=== PATIENT | male | born 1965 | race Caucasian/White ===

== ENCOUNTER 2024-10-02 11:53 | Emergency (ER) | payer BC, SELFPAY ==
[2024-10-02] VITALS (17 sets, daily range): BP systolic 103–129; BP diastolic 72–101; PULSE 48–87; RESP 13–23; TEMP 36.4; O2SAT 95–100; BMI 25.7
--- NOTE | 2024-10-02 12:48 | XR_ITS ---
WS: [id number] Portable AP upright chest, 10/02/2024 Clinical Data: dyspnea/cough Comparison: None. Findings: No nodules, masses or effusions are seen. The heart is normal. The pulmonary vascularity is not increased. No pneumonia or pneumothorax is seen. The aortic arch and descending thoracic aorta show tortuosity. Monitor leads are on the chest wall. XR/XR chest 1V portable [id number] Impression: Atherosclerosis.
--- NOTE | 2024-10-02 12:48 | CTR_ITS ---
PROCEDURE INFORMATION: Exam: CT Abdomen And Pelvis With Contrast Exam date and time: 10/02/2024 2:30 PM Age: 58 years old Clinical indication: Nausea and vomiting; Abdominal pain; Generalized; Additional info: Abd pain TECHNIQUE: Imaging protocol: Computed tomography of the abdomen and pelvis with contrast. Radiation optimization: All CT scans at this facility use at least one of these dose optimization techniques: automated exposure control; mA and/or kV adjustment per patient size (includes targeted exams where dose is matched to clinical indication); or iterative reconstruction. Contrast material: OMNI 350; Contrast volume: 100 ml; Contrast route: INTRAVENOUS (IV); COMPARISON: CR XR chest 1V portable [id number] 10/02/2024 12:58 PM RADIATION DOSE METRICS: Total DLP (mGy-cm): 2004 FINDINGS: Lungs: Right lung calcified granuloma is benign. Lung bases are clear. Liver: Liver is enlarged measuring 18 cm. Periportal edema. A finding which has been associated with increased intravascular volume or acute hepatitis. Liver is enlarged measuring 18 cm. Scattered calcified liver granulomas are benign. Gallbladder and biliary ducts: Gallbladder is normal. There is no evidence of biliary ductal dilation. Pancreas: The pancreas is normal. Spleen: Spleen is enlarged measuring 13 cm in length. The spleen demonstrates punctate calcifications, consistent with remote granulomatous organism exposure. Adrenal glands: Adrenal glands are normal. Kidneys and ureters: Simple cyst in the right kidney measuring 0.9 cm. No follow-up is recommended. The kidneys are otherwise unremarkable. No hydroureter. Stomach and bowel: Severe constipation. There is no evidence of intestinal obstruction. No bowel thickening. There is no evidence of intestinal obstruction. Appendix: 5 mm calcification is present at the tip of the cecum (level of the expected appendiceal/cecal junction). The appendix itself is not confidently seen, however there is some mild fullness at and adjacent to tip of the cecum. This area is difficult to evaluate due to clustering of bowel loops which creates volume averaging artifact. Intraperitoneal space: Small amount of free fluid in the pelvis. No intraperitoneal fluid collections. There is no free intraperitoneal air. Vasculature: No aortic aneurysms. Distended IVC and iliac veins, as can be seen with increased intravascular volumes. Lymph nodes: There is no evidence of lymphadenopathy. Urinary bladder: Bladder is decompressed and difficult to evaluate. Reproductive: Reproductive organs are unremarkable as visualized. Bones/joints: Benign bone island in the left iliac bone. Bone demineralization. Mild multilevel degenerative changes of the spine. No acute skeletal abnormality or aggressive osseous lesion. Soft tissues: No acute soft tissue findings. CT/CT abdomen pelvis w con* [id number] IMPRESSION: 1. Small amount of free fluid in the pelvis. Presumably reactive. 2. Severe constipation. 3. 5 mm calcification is present at the tip of the cecum (level of the expected appendiceal/cecal junction). The appendix itself is not confidently seen, however there is some mild fullness at and adjacent to tip of the cecum. This area is difficult to evaluate due to clustering of bowel loops which creates volume averaging artifact. If the patient is presenting with focal right lower quadrant pain, I would highly advise close follow-up. COMMENTS: Consistent with the [place] [employer]'s Incidental Findings Committee white paper (J Am Joselyn Radiol 2018): Any incidental renal lesion less than 1 cm or classified as too small to characterize, or any incidental cystic renal lesion characterized as simple-appearing, is likely benign. No follow-up imaging is recommended for these lesions per consensus recommendations based on imaging criteria.
--- NOTE | 2024-10-02 12:49 | ECG_ITS ---
[facility] Test Date: 2024-10-02 Pat Name: Dwaine Rubi Department: Room: Gender: Male Eeler: : 1965 Requested By: Gerardo Zendejas Order Number: [id number] Liliana MD: Filiberto Raines M.D. Measurements Intervals [place] Rate: 43 P: 0 TN: 0 QRS: 74 QRSD: 122 T: 57 QT: 498 QTc: 425 Interpretive Statements ATRIAL FIBRILLATION WITH SLOW VENTRICULAR RESPONSE POSSIBLE RIGHT VENTRICULAR CONDUCTION DELAY [RSR (QR) IN V1/V2] POSSIBLE ANTERIOR MYOCARDIAL INFARCTION , OF INDETERMINATE AGE [30 ms Q WAVE IN V3/V4, OR R < 0.2 mV IN V4] No previous ECG available for comparison Electronically Signed On 10-04-2024 19:11:55 CDT by Filiberto Raines M.D. [email or web address]
[2024-10-02 12:58] LABS: Basophils % 0.4 %; Eosinophils # 0.2 10^3/uL (0.0-0.8); Eosinophils % 1.8 %; Hematocrit 46.4 % (37-53); Lymphocytes # 1.3 10^3/uL (0.8-4.8); Lymphocytes % 12.3 %; Mean Corpuscular HGB Conc 31.7 g/dL (30-55); Mean Corpuscular Hemoglobin 29.8 pg (27-33); Mean Corpuscular Volume 93.9 fl (82-101); Mean Platelet Volume 9.8 fL (7.4-10.4); Monocytes # 0.5 10^3/uL (0.2-0.9); Monocytes % 5.1 %; Neutrophils # 8.41 10^3/uL (1.8-7.7); Neutrophils % 80.1 %; Nucleated Red Blood Cells % 0 %; Platelet Count 208 10^3/cmm (157-399); Red Blood Count 4.94 10^6/uL (3.85-5.65); Red Cell Distribution Width 13.2 % (12.1-15.1)
--- NOTE | 2024-10-02 13:17 | ED_ITS ---
Documented by User: Gerardo Simmons DO 10/03/24 08:04 HPI - Syncope 2 General: Chief Complaint: Syncope Stated Complaint: abd pain Time Seen by Provider: 10/02/24 12:09 History of Present Illness: 58-year-old male presents emergency room with working outside felt some abdominal pain had a syncopal episode and passed out. He is vague abdominal discomfort now he did vomit 1 time denies hematochezia melena hematemesis or coffee-ground emesis. He had a second syncopal episode as well. He has not had any diarrhea has not had any shortness of breath no pain in the chest no radiation of pain to the neck or arms. He has a history of atrial fibrillation he is on Eliquis. Associated symptoms: Deny abdominal pain, chest pain or fever(s) Related Data Home Medications ?Medication ?Instructions ?Recorded ?Confirmed amlodipine 10 mg tablet 10 mg PO DAILY 10/02/2409/21 brimonidine 0.2 %-timolol 0.5 % 1 drp ophthalmic (eye) BID 10/02/24 10/02/24 eye drops cholecalciferol (vitamin D3) 125 125 mcg PO DAILY 09/2110/02/24 mcg (5,000 unit) tablet (Vitamin D3) [id number] 300 mcg-K 60 1 tab PO DAILY 10/02/24 10/02/24 mcg-lycop 600 mcg-lutein 300 mcg tablet (Men 50 Plus Multivitamin) rivaroxaban 20 mg tablet (Xarelto) 20 mg PO DAILY 09/2110/02/24 tamsulosin 0.4 mg capsule 0.4 mg PO DAILY 10/02/2407/17 telmisartan 80 mg tablet 80 mg PO DAILY 10/02/2409/21 Allergies Allergy/AdvReac Type Severity Reaction Status Date / Time No Known Allergies Allergy Verified 10/02/24 12:20 Review of Systems 2 Const: Denies: fever(s) or chills Card: Denies: chest pain Resp: Denies: dyspnea GI: Denies: abdominal pain : Denies: dysuria, urinary frequency or urinary urgency Musc: Denies: neck pain or back pain Skin/Breast: Denies: rash PFSH ED 2 PFSH: Medical History (Updated 10/02/24 @ 20:04 by Lexx Dominguez MD) Atrial fibrillation Physical Exam 2 Const: GENERAL APPEARANCE: cooperative ORIENTATION/CONSCIOUSNESS: Yes awake, Yes oriented to person, Yes oriented to place and Yes oriented to time HENMT: COMMON NORMALS: normocephalic, atraumatic and hearing grossly normal bilaterally HEAD & SCALP: normocephalic and atraumatic Resp: COMMON NORMALS: normal respiratory effort, No retractions, No use of accessory muscles and clear to auscultation bilaterally AUSCULTATION: clear to auscultation bilaterally Cardio: COMMON NORMALS: regular rate, regular rhythm and No murmurs present (Cardio) RATE: regular rate RHYTHM: regular rhythm GI: PALPATION: Yes Tenderness to palpation present (GI) (Diffuse) and No Guarding due to palpation present (GI) OTHER: Initial exam no guarding or rebound no pain McBurney's point. Repeat exam after laboratory tests are confirmed no pain McBurney's point pain in the abdomen is intermittent and varying sharp in nature but not persistent there is no guarding no rebound aggressive percussion in the right lower quadrant elicits no significant pain Extremity: COMMON NORMALS: normal to inspection, capillary refill normal, no clubbing, cyanosis or edema, no calf tenderness and no pedal edema Neuro: SENSORIUM/ORIENTATION: Yes oriented to person, Yes oriented to place and Yes oriented to time Skin: COMMON NORMALS: no rashes or lesions noted GENERAL SKIN EXAM: no rashes or lesions noted Course 2 Vital Signs: Vital signs: Vital Signs Temperature 97.5 F L 10/02/24 12:13 Pulse Rate 62 10/03/24 02:22 Respiratory Rate 16 10/03/24 02:22 Blood Pressure 131/91 10/03/24 02:22 Pulse Oximetry 95 10/03/24 02:22 Oxygen Delivery Me thod Room Air 10/03/24 00:22 MDM - Syncope Medical Decision Making Patient significantly bradycardic on arrival he does not take anything that send negative ionotropic. He does have a history of atrial fibrillation is on Xarelto. He is on tamsulosin and amlodipine. Bradycardia witnessed at times to get as low as 40. Troponins so far have been negative other labs unremarkable. Will place on observation for continued monitoring further cardiac evaluation. Concerned about tachybradycardia syndrome with his A-fib. CT showed severe constipation there is a 5 mm calcification in the appendix because of crowding of bowel because due to the constipation they were not completely able to rule out appendicitis. On repeat exam aggressive percussion and palpation at McBurney's point there is no significant pain pain is intermittent in nature and spasmodic like per the patient's description. A CRP was done this was in the normal range. We have made arrangements for admission and I discussed with the patient. After Dr. Madrid talk to the patient patient is not requesting transfer. Making arrangements for transfer however [facility] is saying it will be 24 to 48 hours before bed is available I did discuss this case with Dr. Chamberlain. He did agree to put the patient in an observation bed since that was supposed to be a 48-hour wait to get transferred to [facility]. We received a call from [facility] about an hour later and they stated they had a bed for the patient. Patient now will be transferred to [facility] as soon as we have transportation. He is stable. Lab Data 10/02/24 12:51 10/02/24 13:17 Radiology Impressions Abdomen/Pelvis CT 10/02/24 12:48 IMPRESSION: 1. Small amount of free fluid in the pelvis. Presumably reactive. 2. Severe constipation. 3. 5 mm calcification is present at the tip of the cecum (level of the expected appendiceal/cecal junction). The appendix itself is not confidently seen, however there is some mild fullness at and adjacent to tip of the cecum. This area is difficult to evaluate due to clustering of bowel loops which creates volume averaging artifact. If the patient is presenting with focal right lower quadrant pain, I would highly advise close follow-up. COMMENTS: Consistent with the [employer] [place] [employer]'s Incidental Findings Committee white paper (J Am Joselyn Radiol 2018): Any incidental renal lesion less than 1 cm or classified as too small to characterize, or any incidental cystic renal lesion characterized as simple-appearing, is likely benign. No follow-up imaging is recommended for these lesions per consensus recommendations based on imaging criteria. ADDENDUM: 10/02/24 1515 Findings were discussed with GERARDO SIMMONS at 10/02/2024 3:13 PM CDT. Chest X-Ray 10/02/24 12:48 Impression: Atherosclerosis. Laboratory Results WBC 10.50 10^3/uL (3.29-11.43) 10/02/24 12:51 RBC 4.94 10^6/uL (3.85-5.65) 10/02/24 12:51 Hgb 14.70 g/dL (11.27-16.99) 10/02/24 12:51 Hct 46.4 % (37-53) 10/02/24 12:51 MCV 93.9 fl (82-101) 10/02/24 12:51 MCH 29.8 pg (27-33) 10/02/24 12:51 MCHC 31.7 g/dL (30-55) 10/02/24 12:51 RDW 13.2 % (12.1-15.1) 10/02/24 12:51 Plt Count 208 10^3/cmm (157-399) 10/02/24 12:51 MPV 9.8 fL (7.4-10.4) 10/02/24 12:51 Neut % (Auto) 80.1 % 10/02/24 12:51 Lymph % (Auto) 12.3 % 10/02/24 12:51 [place] % (Auto) 5.1 % 10/02/24 12:51 Eos % (Auto) 1.8 % 10/02/24 12:51 Baso % (Auto) 0.4 % 10/02/24 12: Neut # (Auto) 8.41 10^3/uL (1.8-7.7) H 10/02/24 12:51 Lymph # (Auto) 1.3 10^3/uL (0.8-4.8) 10/02/24 12:51 [place] # (Auto) 0.5 10^3/uL (0.2-0.9) 10/02/24 12:51 Eos # (Auto) 0.2 10^3/uL (0.0-0.8) 10/02/24 12:51 Baso # (Auto) 0.0 10^3/uL (0.0-0.1) 10/02/24 12:51 Nucleated RBC % (auto) 0 % 10/02/24 12: Nucleated RBCs # 0.0 /100WBC 10/02/24 12:51 Sodium 137 mmol/L (136-145) 10/02/24 13:17 Potassium 4.5 mmol/L (3.5-5.1) 10/02/24 13:17 Chloride 103 mmol/L (98-107) 10/02/24 13:17 Carbon Dioxide 22 mmol/L (22-29) 10/02/24 13:17 Anion Gap 16.5 (5-19) 10/02/24 13:17 BUN 26 mg/dL (8-23) H 10/02/24 13:17 Creatinine 1.0 mg/dL (0.7-1.2) 10/02/24 13:17 GFR Calculation 76.2 mL/min (90-130) L 10/02/24 13:17 Glucose 143 mg/dL (65-115) H 10/02/24 13:17 Calculated Osmolality 291 mOsm/kg (285-295) 10/02/24 13:17 Calcium 9.3 mg/dL (8.5-10.5) 10/02/24 13:17 Total Bilirubin 0.6 mg/dL (0.15-1.2) 10/02/24 13:17 AST 23 U/L (0-40) 10/02/24 13:17 ALT 20 U/L (0-41) 10/02/24 13:17 Alkaline Phosphatase 62 U/L (40-130) 10/02/24 13:17 Troponin T Baseline 11 ng/L (0-15) 10/02/24 13:17 Troponin T 120 Minute 9.36 ng/L (0-15) 10/02/24 15:42 Delta Troponin T -1.64 ABS# (0-10) L 10/02/24 15:42 Troponin T Hi Sens 6Hr 11.12 ng/L (0-15) 10/02/24 19:15 Troponin T Hi Sens 6Hr Delta 0.12 ng/L (0-12) 10/02/24 19:15 C-Reactive Protein 3.0 mg/L (0.0-4.9) 10/02/24 15:42 NT-Pro-B Natriuret Pep 525 pg/mL (0-125) H 10/02/24 15:42 Total Protein 6.9 g/dL (6.6-8.7) 10/02/24 13:17 Albumin 4.3 g/dL (3.5-5.2) 10/02/24 13:17 Globulin 2.6 g/dL (1.3-4.6) 10/02/24 13:17 Lipase 15 U/L (13-60) 10/02/24 13:17 Procalcitonin 0.04 ng/mL (0-0.5) 10/02/24 15:42 Urine Color Yellow (Yellow) 10/02/24 13:42 Urine Appearance Cloudy (CLEAR) A 10/02/24 13:42 Urine pH 8.0 (5-7) A 10/02/24 13:42 Ur Specific Lynn 1.019 (1.005-1.030) 10/02/24 13:42 Urine Protein Negative (Negative) 10/02/24 13:42 Urine Glucose (UA) Negative (Normal) 10/02/24 13:42 Urine Ketones Negative (Negative) 10/02/24 13:42 Urine Blood Negative (Negative) 10/02/24 13:42 Urine Nitrate Negative (Negative) 10/02/24 13:42 Urine Bilirubin Negative (Negative) 10/02/24 13:42 Urine Urobilinogen 0.2 mg/dL (Negative) 10/02/24 13:42 Ur Leukocyte Esterase Negative (Negative) 10/02/24 13:42 Urine RBC 0-2 /hpf (0-2) 10/02/24 13:42 Urine WBC 0-5 /hpf (0-5) 10/02/24 13:42 Ur Squamous Epith Cells 0-5 /hpf (0-5) 10/02/24 13:42 Amorphous Sediment Not Reportable 10/02/24 13:42 Urine Bacteria None seen /hpf (NONE) 10/02/24 13:42 Hyaline Casts 0-4 /lpf H 10/02/24 13:42 Discharge Plan Discharge Patient Disposition: Xfer Short-Term Hosp Clinical Impression: Near syncope Abdominal pain Qualifiers: Abdominal location: generalized Qualified Code(s): R10.84 - Generalized abdominal pain Constipation Qualifiers: Constipation type: unspecified constipation type Qualified Code(s): K59.00 - Constipation, unspecified Condition: Stable Referrals: Harley Larry MD [Primary Care Provider] - Patient Instructions: Abdominal Pain (ED) Print Language: Cypriot Coding Level of Care Code ED Marine Electrician Apprentice for Chg Fwd Documented by User: Lexx Dominguez MD 10/03/24 00:44 HPI - Syncope 2 General: Chief Complaint: Syncope Stated Complaint: abd pain Time Seen by Provider: 10/02/24 12:09 Related Data Home Medications ?Medication ?Instructions ?Recorded ?Confirmed amlodipine 10 mg tablet 10 mg PO DAILY 10/02/2409/21 brimonidine 0.2 %-timolol 0.5 % 1 drp ophthalmic (eye) BID 10/02/24 10/02/24 eye drops cholecalciferol (vitamin D3) 125 125 mcg PO DAILY 09/2110/02/24 mcg (5,000 unit) tablet (Vitamin D3) [id number]-jn-vefyj 300 mcg-K 60 1 tab PO DAILY 10/02/24 10/02/24 mcg-lycop 600 mcg-lutein 300 mcg tablet (Men 50 Plus Multivitamin) rivaroxaban 20 mg tablet (Xarelto) 20 mg PO DAILY 09/2110/02/24 tamsulosin 0.4 mg capsule 0.4 mg PO DAILY 10/02/2407/17 telmisartan 80 mg tablet 80 mg PO DAILY 10/02/2409/21 Allergies Allergy/AdvReac Type Severity Reaction Status Date / Time No Known Allergies Allergy Verified 10/02/24 12:20 [facility] Medical History (Updated 10/02/24 @ 20:04 by Lexx Dominguez MD) Atrial fibrillation Course 2 Vital Signs: Vital signs: Vital Signs Temperature 97.5 F L 10/02/24 12:13 Pulse Rate 62 10/03/24 02:22 Respiratory Rate 16 10/03/24 02:22 Blood Pressure 131/91 10/03/24 02:22 Pulse Oximetry 95 10/03/24 02:22 Oxygen Delivery Me thod Room Air 10/03/24 00:22 MDM - Syncope Medical Decision Making Patient significantly bradycardic on arrival he does not take anything that send negative ionotropic. He does have a history of atrial fibrillation is on Xarelto. He is on tamsulosin and amlodipine. Bradycardia witnessed at times to get as low as 40. Troponins so far have been negative other labs unremarkable. Will place on observation for continued monitoring further cardiac evaluation. Concerned about tachybradycardia syndrome with his A-fib. I did discuss this case with Dr. Chamberlain. He did agree to put the patient in an observation bed since that was supposed to be a 48-hour wait to get transferred to [facility]. We received a call from [facility] about an hour later and they stated they had a bed for the patient. Patient now will be transferred to [facility] as soon as we have transportation. He is stable. Lab Data 10/02/24 12:51 10/02/24 13:17 Radiology Impressions Abdomen/Pelvis CT 10/02/24 12:48 IMPRESSION: 1. Small amount of free fluid in the pelvis. Presumably reactive. 2. Severe constipation. 3. 5 mm calcification is present at the tip of the cecum (level of the expected appendiceal/cecal junction). The appendix itself is not confidently seen, however there is some mild fullness at and adjacent to tip of the cecum. This area is difficult to evaluate due to clustering of bowel loops which creates volume averaging artifact. If the patient is presenting with focal right lower quadrant pain, I would highly advise close follow-up. COMMENTS: Consistent with the [place] [employer]'s Incidental Findings Committee white paper (J Am Joselyn Radiol 2018): Any incidental renal lesion less than 1 cm or classified as too small to characterize, or any incidental cystic renal lesion characterized as simple-appearing, is likely benign. No follow-up imaging is recommended for these lesions per consensus recommendations based on imaging criteria. ADDENDUM: 10/02/24 1515 Findings were discussed with GERARDO SIMMONS at 10/02/2024 3:13 PM CDT. Chest X-Ray 10/02/24 12:48 Impression: Atherosclerosis. Laboratory Results WBC 10.50 10^3/uL (3.29-11.43) 10/02/24 12:51 RBC 4.94 10^6/uL (3.85-5.65) 10/02/24 12:51 Hgb 14.70 g/dL (11.27-16.99) 10/02/24 12:51 Hct 46.4 % (37-53) 10/02/24 12:51 MCV 93.9 fl (82-101) 10/02/24 12:51 MCH 29.8 pg (27-33) 10/02/24 12:51 MCHC 31.7 g/dL (30-55) 10/02/24 12:51 RDW 13.2 % (12.1-15.1) 10/02/24 12:51 Plt Count 208 10^3/cmm (157-399) 10/02/24 12:51 MPV 9.8 fL (7.4-10.4) 10/02/24 12:51 Neut % (Auto) 80.1 % 10/02/24 12:51 Lymph % (Auto) 12.3 % 10/02/24 12:51 [place] % (Auto) 5.1 % 10/02/24 12:51 Eos % (Auto) 1.8 % 10/02/24 12:51 Baso % (Auto) 0.4 % 10/02/24 12:51 Neut # (Auto) 8.41 10^3/uL (1.8-7.7) H 10/02/24 12:51 Lymph # (Auto) 1.3 10^3/uL (0.8-4.8) 10/02/24 12:51 [place] # (Auto) 0.5 10^3/uL (0.2-0.9) 10/02/24 12:51 Eos # (Auto) 0.2 10^3/uL (0.0-0.8) 10/02/24 12:51 Baso # (Auto) 0.0 10^3/uL (0.0-0.1) 10/02/24 12:51 Nucleated RBC % (auto) 0 % 10/02/24 12:51 Nucleated RBCs # 0.0 /100WBC 10/02/24 12:51 Sodium 137 mmol/L (136-145) 10/02/24 13:17 Potassium 4.5 mmol/L (3.5-5.1) 10/02/24 13:17 Chloride 103 mmol/L (98-107) 10/02/24 13:17 Carbon Dioxide 22 mmol/L (22-29) 10/02/24 13:17 Anion Gap 16.5 (5-19) 10/02/24 13:17 BUN 26 mg/dL (8-23) H 10/02/24 13:17 Creatinine 1.0 mg/dL (0.7-1.2) 10/02/24 13:17 GFR Calculation 76.2 mL/min (90-130) L 10/02/24 13:17 Glucose 143 mg/dL (65-115) H 10/02/24 13:17 Calculated Osmolality 291 mOsm/kg (285-295) 10/02/24 13:17 Calcium 9.3 mg/dL (8.5-10.5) 10/02/24 13:17 Total Bilirubin 0.6 mg/dL (0.15-1.2) 10/02/24 13:17 AST 23 U/L (0-40) 10/02/24 13:17 ALT 20 U/L (0-41) 10/02/24 13:17 Alkaline Phosphatase 62 U/L (40-130) 10/02/24 13:17 Troponin T Baseline 11 ng/L (0-15) 10/02/24 13:17 Troponin T 120 Minute 9.36 ng/L (0-15) 10/02/24 15:42 Delta Troponin T -1.64 ABS# (0-10) L 10/02/24 15:42 Troponin T Hi Sens 6Hr 11.12 ng/L (0-15) 10/02/24 19:15 Troponin T Hi Sens 6Hr Delta 0.12 ng/L (0-12) 10/02/24 19:15 C-Reactive Protein 3.0 mg/L (0.0-4.9) 10/02/24 15:42 NT-Pro-B Natriuret Pep 525 pg/mL (0-125) H 10/02/24 15:42 Total Protein 6.9 g/dL (6.6-8.7) 10/02/24 13:17 Albumin 4.3 g/dL (3.5-5.2) 10/02/24 13:17 Globulin 2.6 g/dL (1.3-4.6) 10/02/24 13:17 Lipase 15 U/L (13-60) 10/02/24 13:17 Procalcitonin 0.04 ng/mL (0-0.5) 10/02/24 15:42 Urine Color Yellow (Yellow) 10/02/24 13:42 Urine Appearance Cloudy (CLEAR) A 10/02/24 13:42 Urine pH 8.0 (5-7) A 10/02/24 13:42 Ur Specific Lynn 1.019 (1.005-1.030) 10/02/24 13:42 Urine Protein Negative (Negative) 10/02/24 13:42 Urine Glucose (UA) Negative (Normal) 10/02/24 13:42 Urine Ketones Negative (Negative) 10/02/24 13:42 Urine Blood Negative (Negative) 10/02/24 13:42 Urine Nitrate Negative (Negative) 10/02/24 13:42 Urine Bilirubin Negative (Negative) 10/02/24 13:42 Urine Urobilinogen 0.2 mg/dL (Negative) 10/02/24 13:42 Ur Leukocyte Esterase Negative (Negative) 10/02/24 13:42 Urine RBC 0-2 /hpf (0-2) 10/02/24 13:42 Urine WBC 0-5 /hpf (0-5) 10/02/24 13:42 Ur Squamous Epith Cells 0-5 /hpf (0-5) 10/02/24 13:42 Amorphous Sediment Not Reportable 10/02/24 13:42 Urine Bacteria None seen /hpf (NONE) 10/02/24 13:42 Hyaline Casts 0-4 /lpf H 10/02/24 13:42 All radiology interpretation(s) finalized by discharge Discharge Plan Discharge Patient Disposition: Xfer Short-Term Hosp Clinical Impression: Near syncope Abdominal pain Qualifiers: Abdominal location: generalized Qualified Code(s): R10.84 - Generalized abdominal pain Constipation Qualifiers: Constipation type: unspecified constipation type Qualified Code(s): K59.00 - Constipation, unspecified Condition: Stable Referrals: Harley Larry MD [Primary Care Provider] - Patient Instructions: Abdominal Pain (ED) Print Language: Cypriot Coding Level of Care Code ED Marine Electrician Apprentice for Phoebe Mcgowan
[2024-10-02 14:08] LABS: Troponin(5th) Baseline 11 ng/L (0-15)
[2024-10-02 14:09] LABS: Alanine Aminotransferase 20 U/L (0-41); Albumin Level 4.3 g/dL (3.5-5.2); Alkaline Phosphatase 62 U/L (40-130); Aspartate Amino Transferase 23 U/L (0-40); Blood Urea Nitrogen 26 mg/dL (8-23); Calcium 9.3 mg/dL (8.5-10.5); Carbon Dioxide 22 mmol/L (22-29); Chloride 103 mmol/L (98-107); Creatinine Clr Calc Pharmacy 97.8622; Globulin 2.6 g/dL (1.3-4.6); Glomerular Filtration Rate 76.2 mL/min (90-130); Glucose 143 mg/dL (65-115); Lipase 15 U/L (13-60); Osmolality Calculated 291 mOsm/kg (285-295); Sodium 137 mmol/L (136-145); Total Bilirubin 0.6 mg/dL (0.15-1.2); Total Protein 6.9 g/dL (6.6-8.7)
[2024-10-02 14:09] LABS: Bilirubin Urine Negative (Negative); Blood Urine Negative (Negative); Glucose Urine UA Negative (Normal); Ketones Urine Negative (Negative); Leukocyte Esterase Urine Negative (Negative); Nitrate Urine Negative (Negative); Protein Urine Negative (Negative); Specific Gravity, Urine 1.019 (1.005-1.030); Urine Appearance Cloudy (CLEAR); Urine Color Yellow (Yellow); Urobilinogen Urine 0.2 mg/dL (Negative)
[2024-10-02 14:11] LABS: Anion Gap 16.5 (5-19); Potassium 4.5 mmol/L (3.5-5.1)
[2024-10-02 14:11] LABS: Add Urine Microscopic? YES; Bacteria Urine None Seen /hpf; Hyaline Casts Urine 0-4 /lpf; RBC Urine 0-2 /hpf (0-2); Squamous Epithelial Cell Urine 0-5 /hpf (0-5); WBC Urine 0-5 /hpf (0-5)
[2024-10-02] MEDS: iohexol 350 mg/mL 500 mL Btl (per mL) IV (14:34)
--- NOTE | 2024-10-02 14:49 | ECG_ITS ---
[facility] Test Date: 2024-10-02 Pat Name: Dwaine Rubi Department: Room: Gender: Male Energy Efficiency Specialist: : 1965 Requested By: Gerardo Zendejas Order Number: [id number] Reading MD: VALERIE WAYEN Measurements Intervals [place] Rate: 51 P: 0 VA: 0 QRS: 73 QRSD: 123 T: 68 QT: 469 QTc: 435 Interpretive Statements ATRIAL FIBRILLATION WITH SLOW VENTRICULAR RESPONSE POSSIBLE RIGHT VENTRICULAR CONDUCTION DELAY [RSR (QR) IN V1/V2] POSSIBLE ANTERIOR MYOCARDIAL INFARCTION , OF INDETERMINATE AGE [30 ms Q WAVE IN V3/V4, OR R < 0.2 mV IN V4] Compared to ECG 10/02/2024 12:15:49 No significant changes Electronically Signed On 10-07-2024 18:25:28 CDT by VALERIE WAYNE [email or web address]
[2024-10-02 16:53] LABS: Troponin 5 2HR 9.36 ng/L (0-15)
[2024-10-02 16:59] LABS: Troponin 5 2HR Delta -1.64 ABS# (0-10)
[2024-10-02 17:02] LABS: NT Pro B Type Natriuretic Pept 525 pg/mL (0-125)
--- NOTE | 2024-10-02 17:46 | PM.HP ---
Providers/Chief Complaint Primary Care Provider: Harley Larry MD Chief Complaint: abd pain History of Present Illness Dwaine Rubi is a 58 year old male with a past medical history of atrial fibrillation status post ablation, on Xarelto took Xarelto this morning, hypertension who presents to [facility] due to abdominal pain and passing out after abdominal pain. Patient tells me that for the last 2 days he has been working out in his garden, preparing for this spring, he moved a 50 pound bag he denies any chest pain, no shortness of breath, no lightheadedness, no dizziness, he felt okay. He tells me that he does not have any issues with constipation, he typically has 1-2 bowel movements a day no blood or black stools reported he has had 2 negative Cologuard's, no family history of colon cancer. He tells me that this morning at about 9 or so, he started to develop severe abdominal pain, just below the umbilicus, more towards the right lower quadrant, he tells me the pain was so severe he felt as if he passed out due to severe pain. He denies any preceding chest pain, palpitations, no lightheadedness, dizziness, no strokelike symptoms. The next thing he remembers, he continued to have severe lower abdominal pain, throughout the day, associated with multiple episodes of nausea and vomiting, no recurrent episodes of passing out or chest pain. He tells me that when he came to the emergency room, about 30 minutes being here, his chest pain resolved, his nausea and vomiting is resolved, no hemoptysis, no dysuria, denies a poor appetite. CT scan abdomen pelvis CT/CT abdomen pelvis w con* [id number] IMPRESSION: 1. Small amount of free fluid in the pelvis. Presumably reactive. 2. Severe constipation. 3. 5 mm calcification is present at the tip of the cecum (level of the expected appendiceal/cecal junction). The appendix itself is not confidently seen, however there is some mild fullness at and adjacent to tip of the cecum. This area is difficult to evaluate due to clustering of bowel loops which creates volume averaging artifact. If the patient is presenting with focal right lower quadrant pain, I would highly advise close follow-up. -During my evaluation, patient is alert oriented x 3, following all commands, -He has good bowel sounds, no guarding, no rebound, rigidity -But upon palpation he does have exquisite right lower quadrant tenderness to palpation, Rovsing sign positive, no McBurney point tenderness ? He has no leukocytosis -CRP Pro-Bill have been ordered -I spoke to patient about his passing out episode he has never had issues with passing out, he does have sinus bradycardia here but he reports a history of this, he tells me that he is quite healthy, he is very physically active, -Unfortunately we do not have surgical coverage here today at [facility], ideally I would consult general surgery and get their opinion. I think they would likely say IV antibiotics, IV fluids, repeat CAT scan in the morning, but I am not a surgeon, and as we do not have surgical coverage here at [facility], I cannot give a surgical opinion. And surgical opinion would be helpful. Again I made it clear to patient that I do not believe he currently needs surgery, but I think that given his right lower quadrant pain surgical opinion would helpful in medical decision making, but watchful waiting would also be reasonable -I spoke to ER provider, discussed case, there is bowel gas, stool that is making it difficult to evaluate appendix in detail although CAT scan as above does not give a clear indication of appendicitis, I am certainly concerned that this could be a possibility of appendicitis, certainly other possibilities include patient's constipation, musculoskeletal -In terms of his syncope I think it is from his abdominal pain, certainly he has sinus bradycardia, in addition potentially sinus pauses that were observed in the emergency room could be an etiology, but patient states he was very physically active for the last 2 days and did not have any significant syncopal episodes, and his syncope really only was in his words from severe pain from his abdominal pain ? We came up with a plan to offer the patient hospital admission, IV fluids, IV antibiotics, bowel rest, bowel regimen and repeat imaging in the morning, if he clinically improves and his CAT scan is within normal limits this would be ideal, but if his CAT scan did show any significant evidence of appendicitis and we could certainly transfer him at that point. In most cases of appendicitis they would recommend IV antibiotics, fluid therapy, unless there is significant perforation imaging -I spoke to patient and I gave him the option of IV fluids, IV antibiotics, bowel rest, bowel regiment to help with his constipation, telemetry monitoring monitoring his cardiac enzymes, repeating CAT scan in the morning, and the plan as above -Patient's asked me if there is any way we could transfer patient to [facility] in [place] for surgical opinion as we do not have surgical services available here at [facility], this would make him the most comfortable -I discussed with him the risk and benefits of transfer, they voiced understanding, all questions answered, shared decision making, they would prefer to go to [facility] in [place], for surgical opinion -I have relayed this information to Dr. Simmons Review of Systems Const: Denies: fever(s) GI: Reports: abdominal pain and nausea Musc: Denies: neck pain Medications/Allergies Home Medications ?Medication ?Instructions ?Recorded ?Confirmed ?Last Taken ?Type amlodipine 10 mg tablet 10 mg PO DAILY 10/02/24 10/02/24 10/02/24 History brimonidine 0.2 %-timolol 0.5 % 1 drp ophthalmic (eye) BID 10/02/24 10/02/24 10/01/24 History eye drops cholecalciferol (vitamin D3) 125 125 mcg PO DAILY 10/02/24 10/02/24 10/02/24 History mcg (5,000 unit) tablet (Vitamin D3) [id number] 300 mcg-K 60 1 tab PO DAILY 10/02/24 10/02/24 10/02/24 History mcg-lycop 600 mcg-lutein 300 mcg tablet (Men 50 Plus Multivitamin) rivaroxaban 20 mg tablet (Xarelto) 20 mg PO DAILY 10/02/24 10/02/24 10/02/24 History tamsulosin 0.4 mg capsule 0.4 mg PO DAILY 10/02/24 10/02/24 Unknown History telmisartan 80 mg tablet 80 mg PO DAILY 10/02/24 10/02/24 10/02/24 History Allergies Allergy/AdvReac Type Severity Reaction Status Date / Time No Known Allergies Allergy Verified 10/02/24 12:20 PFSH Acute PFSH: Medical History (Updated 10/02/24 @ 18:14 by Selvin Madrid MD) Atrial fibrillation Vitals/I&O/Wt Last Vital Signs Temp 97.5 F L 10/02/24 12:13 Pulse 49 L 10/02/24 12:13 Resp 16 10/02/24 12:13 BP 124/83 10/02/24 12:13 Pulse Ox 100 10/02/24 12:13 O2 Del Method Room Air 10/02/24 12:13 Weight last 48 hrs Weight 93.44 kg Physical Exam Const: COMMON NORMALS: no acute distress and patient oriented x3 Resp: COMMON NORMALS: normal respiratory effort, No retractions, No use of accessory muscles and clear to auscultation bilaterally AUSCULTATION: clear to auscultation bilaterally Cardio: COMMON NORMALS: regular rate, regular rhythm, S1 normal heart sound present and S2 normal heart sound present RATE: bradycardic RHYTHM: regular rhythm HEART SOUNDS: S1 normal heart sound present and S2 normal heart sound present GI: OTHER: Abdomen soft, slightly distended, no guarding, rebound, rigidity, does have exquisite right lower quadrant tenderness, McBurney sign negative, Rovsing sign positive Extremity: COMMON NORMALS: no pedal edema Neuro: COMMON NORMALS: patient oriented x3 Psych: COMMON NORMALS: mental status grossly normal Data 10/02/24 12:51 10/02/24 13:17 A&P Assessment and plan (1) Right lower quadrant abdominal pain: (2) Bradycardia: Plan Right lower quadrant abdominal pain -patient and requesting transfer Bradycardia PDMP PDMP Reviewed: Not Reviewed Attestations Medical Necessity Statement*: Patient and would like patient to be transferred to [facility] Diagnoses Right lower quadrant abdominal pain R10.31 Bradycardia R00.1
[2024-10-02 19:02] LABS: Procalcitonin 0.04 ng/mL (0-0.5)
[2024-10-02 20:07] LABS: Troponin 5 6HR 11.12 ng/L (0-15); Troponin 5 6HR Delta 0.12 ng/L (0-12)
--- NOTE | 2024-10-02 21:39 | W.PM.EVENTAC ---
Event Note Event Note: I received a call from the night ER physician regarding concerns related to this patient CBC BMP and CT scan reviewed, I did go over her CT scan findings with the patient, he is aware that we do not have general surgery backup in the hospital today and there is free fluid in the pelvis which is reactive, there is no other sign of inflammation as per the CT scan report to justify free fluid in the pelvis which could be an early sign of appendicitis, on clinical exam patient does have focal tenderness on deep palpation, he is afebrile, without leukocytosis I did tell the patient that I am okay admitting him in the hospital, treating with IV fluids and antibiotics but in case he would need general surgery for evaluation consultation or intervention we would not have any backup at this point, I have given the patient option to stay here versus transfer to other hospital where general surgery could evaluate him, he has opted to be transferred.
[2024-10-03 00:22] VITALS: BP 119/84; PULSE 77; RESP 18; O2SAT 96
[2024-10-03 02:22] VITALS: BP 131/91; PULSE 62; RESP 16; O2SAT 95
== END 2024-10-03 02:26 | disposition short-term general hospital (02) ==
PROVIDERS: Family Medicine; Emergency Provider Emergency Medicine; PCP Family Medicine
DX: R55 Syncope and collapse (principal); R10.84 Generalized abdominal pain; K59.00 Constipation, unspecified
CPT/HCPCS: 36415; 71045; 74177; 80053; 81001; 83690; 83880; 84145; 84484; 85025; 86140; 93005; 99285